=== PATIENT | female | born 1950 ===

== ENCOUNTER 2021-05-26 08:46 | Emergency (ER) | payer BC, OTHER ==
[~2021-05-26] VITALS: Ht 162.6 cm; Wt 90.4 kg
[2021-05-26] MEDS ORDERED: LEVO50TA5 PO (08:52)
[2021-05-26] MEDS ORDERED: ACETAMINOPHEN 500 MG TAB PO ONE (09:15)
--- OUTSIDE RECORDS SUMMARY | 2021-05-26 09:31 | CCD ---
Author Author [facility] Organization [facility] Address Unknown Phone Unavailable Care Team Providers Care Belt Press Operator Name Role Phone Theo, A Neha PA Unavailable Unavailable Theo, A Neha PA Unavailable Unavailable Theo, A Neha PA Unavailable Unavailable Theo, A Neha PA Unavailable Unavailable Theo, A Neha PA Unavailable Unavailable Theo, A Neha PA Unavailable Unavailable Theo, A Neha PA Unavailable Unavailable Theo, A Neha PA Unavailable Unavailable Theo, A Neha PA Unavailable Unavailable Theo, A Neha PA Unavailable Unavailable Theo, A Neha PA Unavailable Unavailable Theo, A Neha PA Unavailable Unavailable Theo, A Neha PA Unavailable Unavailable Theo, A Neha PA Unavailable Unavailable Theo, A Neha PA Unavailable Unavailable Theo, A Neha PA Unavailable Unavailable Theo, A Neha PA Unavailable Unavailable Theo, A Neha PA Unavailable Unavailable Theo, A Neha PA Unavailable Unavailable Theo, A Neha PA Unavailable Unavailable Theo, A Neha PA Unavailable Unavailable Theo, A Neha PA Unavailable Unavailable Theo, A Neha PA Unavailable Unavailable Theo, A Enha PA Unavailable Unavailable Theo, A Neha PA Unavailable Unavailable Theo, A Neha PA Unavailable Unavailable Theo, A Neha PA Unavailable Unavailable Theo, A Neha PA Unavailable Unavailable Theo, A Neha PA Unavailable Unavailable Theo, A Neha PA Unavailable Unavailable Theo, A Neha PA Unavailable Unavailable Theo, A Neha PA Unavailable Unavailable Theo, A Neha PA Unavailable Unavailable Theo, A Neha PA Unavailable Unavailable Theo, A Neha PA Unavailable Unavailable Theo, A Neha PA Unavailable Unavailable Theo, A Neha PA Unavailable Unavailable Theo, A Neha PA Unavailable Unavailable Theo, A Neha PA Unavailable Unavailable Theo, A Neha PA Unavailable Unavailable Theo, A Neha PA Unavailable Unavailable Theo, A Neha PA Unavailable Unavailable Theo, A Neha PA Unavailable Unavailable Theo, A Neha PA Unavailable Unavailable Theo, A Neha PA Unavailable Unavailable Theo, A Neha PA Unavailable Unavailable Theo, A Neha PA Unavailable Unavailable Theo, A Neha PA Unavailable Unavailable Theo, A Neha PA Unavailable Unavailable Theo, A Neha PA Unavailable Unavailable Theo, A Neha PA Unavailable Unavailable Theo, A Neha PA Unavailable Unavailable Theo, A Neha PA Unavailable Unavailable Re-disclosure Warning The records that you are about to access may contain information from federally-assisted alcohol or drug abuse programs. If such information is present, then the following federally mandated warning applies: This information has been disclosed to you from records protected by federal confidentiality rules (42 CFR part 2). The federal rules prohibit you from making any further disclosure of this information unless further disclosure is expressly permitted by the written consent of the person to whom it pertains or as otherwise permitted by 42 CFR part 2. A general authorization for the release of medical or other information is NOT sufficient for this purpose. The Federal rules restrict any use of the information to criminally investigate or prosecute any alcohol or drug abuse patient.The records that you are about to access may contain highly sensitive health information, the redisclosure of which is protected by Article 27-F of the [facility] Public Health law. If you continue you may have access to information: Regarding HIV / AIDS; Provided by facilities licensed or operated by the [facility] Office of Mental Health; or Provided by the [facility] Office for People With Developmental Disabilities. If such information is present, then the following [facility] mandated warning applies: This information has been disclosed to you from confidential records which are protected by state law. State law prohibits you from making any further disclosure of this information without the specific written consent of the person to whom it pertains, or as otherwise permitted by law. Any unauthorized further disclosure in violation of state law may result in a fine or half-way sentence or both. A general authorization for the release of medical or other information is NOT sufficient authorization for further disc losure. Allergies and Adverse Reactions Type Description Substance Reaction Status Data Source(s ) Drug allergy enalapril enalapril rash cough headache [facility] Drug allergy neomycin neomycin CONTACT DERMATITIS [facility] Food allergy No Known Food Allergies No Known Food Allergies [facility] Drug allergy amlodipine besylate amlodipine besylate rash SC [facility] Family History Family Member Name Family Member Gender Family Member Status Date o f Status Description Data Source(s) Unknown Condition [facility] Unknown Condition [facility] Unknown Condition [facility] Unknown Condition [facility] Unknown Condition [facility] Unknown Condition [facility] Unknown Condition [facility] Unknown Condition [facility] Unknown Condition [facility] Unknown Condition [facility] Unknown Condition [facility] Encounters Encounter Providers Location Date Indications Data Source(s ) Outpatient Attender: Neha VALDEZ 10/25/2020 03 :30:00 PM EDT ANNUAL SCREENING [facility] ANNUAL SCREENING Outpatient Attender: Neha Venegas PAReferrer: Neha VALDEZ 10/17/2020 09:15:00 AM EDT - 10/17/2020 10:03:00 AM EDT [facility] Outpatient Attender: Neha VALDEZ 10/12/2020 07 :12:00 AM EST Z12.11,E78.2,E03.9,R73.01,E55.9 [facility] Z12.11,E78.2,E03.9,R73.01,E55.9 Outpatient Attender: Neha VALDEZ 08/10/2020 08 :32:00 AM EST E03.9,E78.2,R73.01,E55.9 [facility] E03.9,E78.2,R73.01,E55.9 Outpatient Attender: Neha Venegas PAReferrer: Neha VALDEZ 04/16/2020 09:18:00 AM EDT - 04/16/2020 09:55:00 AM EDT [facility] Outpatient Attender: Neha VALDEZ 04/11/2020 08:05:00 AM EDT E03.9,E55.9 [facility] E03.9,E55.9 Medications Medication Brand Name Start Date Product Form Dose Route Admi nistrative Instructions Pharmacy Instructions Status Indications Reaction Description Data Source(s) Cholecalciferol 1999 UNT Oral Capsule Cholecalciferol (Vitamin D3) Cholecalciferol (Vitamin D3) 04/16/2020 09:59:15 AM EDT [address] [facility] Levothyroxine Sodium 0.1 MG Oral Tablet Levothyroxine 04/16/2020 09:57:52 AM EDT 100 MCG active [facility] Cholecalciferol 1999 UNT Oral Capsule Cholecalciferol (Vitamin D3) Cholecalciferol (Vitamin D3) 04/16/2020 09:38:24 AM EDT [address] [facility] Cholecalciferol 1999 UNT Oral Capsule Cholecalciferol (Vitamin D3) Cholecalciferol (Vitamin D3) 04/16/2020 09:38:24 AM EDT [address] [facility] Mupirocin 0.02 MG/MG Topical Ointment Mupirocin 12/29/2019 11:40 :17 AM EDT 1 APPLIC completed [facility] Mupirocin 0.02 MG/MG Topical Ointment Mupirocin 12/29/2019 11:40 :17 AM EDT 1 APPLIC completed [facility] Cefadroxil 500 MG Oral Capsule Cefadroxil 12/29/2019 11:37:53 AM EDT 500 MG completed [facility] Cefadroxil 500 MG Oral Capsule Cefadroxil 12/29/2019 11:37:53 AM EDT 500 MG completed [facility] Levothyroxine Sodium 0.088 MG Oral Tablet Levothyroxine 10/17/2019 09:29:09 AM EDT 88 MCG completed [facility] Cholecalciferol 86141 UNT Oral Capsule Cholecalciferol (Vitamin D3) Cholecalciferol (Vitamin D3) 10/17/2019 09:27:03 AM EDT [address] [facility] Cholecalciferol 60988 UNT Oral Capsule Cholecalciferol (Vitamin D3) Cholecalciferol (Vitamin D3) 10/17/2019 09:27:03 AM EDT [address] [facility] Insurance Providers Payer name Policy type / Coverage type Policy ID Covered green party ID Covered green party's relationship to lee Policy Lee Plan Information AETNA U [id number] Self [id number] AETNA U [id number] Self [id number] AETNA MEDICARE COMPLETE G [id number] Self [id number] AETNA MEDICARE COMPLETE G [id number] Self [id number] AETNA MCR - RECURRING [id number] AETNA -RECURRING [id number] BCBS [place] PPO [id number] Problems, Conditions, and Diagnoses No Information Surgeries/Procedures No Information Results ID Date Data Source [id number] 10/25/2020 06:21:00 PM EDT [facility] [address] [address] [phone] NAME SEX PT STATUS ACCOUNT NUMBER ELAINE BARTON PRE REF [id number] ORDERING PHYSICIAN LOCATION MEDICAL RECORD NO. Neha Venegas MAMMO [id number] ATTENDING PHYSICIAN DATE OF DATE OF EXAM/TIME Neha Venegas RPA 1950 10/25/20 / 6 TYPE / EXAM 3D DIG MAMMO SCREEN BILAT REASON FOR EXAM Screening for breast cancer LAST CLINICAL BREAST EXAM: Unknown FIVE YEAR RISK: 1.5% LIFETIME RISK: 4.5% FAMILY HISTORY OF BREAST CARCINOMA: None COMPARISON: 07/20/2017, 11/02/2006 2D bilateral digital mammogram in the CC and MLO projections was performed with supplemental 3D tomosynthesis of both breasts. FINDINGS: Craniocaudad and oblique lateral views of the breasts were obtained. The breasts are primarily of fat density. There is no dominant mass, suspicious clustered microcalcification or architectural distortion. IMPRESSION: No mammographic evidence of malignancy. Yearly screening recommended. OVERALL FINAL ASSESSMENT OF FINDINGS BI-RADS 1 - Negative OVERALL FINAL ASSESSMENT OF THE BREAST COMPOSITION Breast Density Classification: A Description: The breasts are almost entirely fatty. This mammogram was read with the assistance of M-Qinec, an FDA-approved computer-aided detection system for mammography. Reported By Darlene Romero MD on 10/25/201820 Signed By Darlene Romero MD on 10/25/201822 Date Time CC: Darlene Romero MD; Neha Venegas Techn: CUMME Trans Dt/Tm: Trans by: DT Prt Dt/Tm: : Total DLP = 0.00 mGy-cm 6630-6599: Total Radiation Dose = 0.0000 mSv Lifetime Dose: 0 mSv Name Value Range Interpretation Code Description Data Candie rce(s) Supporting Document(s) ID Date Data Source [id number] 10/17/2020 09:23:00 AM EDT [facility] Patient Name: ELAINE BARTON : 1950 Sex: F Pt Unit #: [id number] Location:[facility] Provider: Visit Date/Time: 10/17/20 Primary Insurance: [employer] MEDICARE Secondary Insurance: Self Pay ADDENDUM PHQ 9 2 <Electronically signed by Neha Prasad> 10/17/20 1026 Intake Vital Signs 10/17/20 09:27 10/17/20 10:11 Current Height 5 ft 4 in Current Weight 200 lb Weight Measurement Method Standing Scale BMI 34.3 BP 140/78 122/80 Blood Pressure Location Lt brachial Rt brachial Position Sitting Sitting Respiration 20 Pulse 80 Pulse Strength Normal Pulse Source Pulse Oximeter Temp 98.2 F Temp Source Oral Pulse Oximetry (%) 98 Oxygen Delivery Method room air Intake- Medicare Annual Visit Reasons: hypothyroidism f/u Nurse Note: F/u on labs Hot Die Picker Required: No Accompanied by: Self / Same as Patient Is patient in pain?: No Allergies enalapril [Enalapril] Allergy (Intermediate, Verified 10/17/20 09:44) rash cough headache neomycin [NEOMYCIN] Allergy (Intermediate, Verified 10/17/20 09:44) CONTACT DERMATITIS amlodipine besylate [From Norvas] Allergy (Mild, Verified 10/17/20 09:44) rash No Known Food Allergies Allergy (Verified 10/17/20 09:44) Medications - Last Reconciled 10/17/20 by JOURDAN Su cholecalciferol (vitamin D3) 4,000 units PO QDAY levothyroxine 100 mcg PO QDAY Requirement for HIV testing offer been met?: Not in age range Coronavirus Screening Screening A re you currently positive or on isolation for COVID ?: No Do you have any NEW signs of one or more of the following?: no symptoms Do you have NEW signs of at least two of the following?: no symptoms PFSH Medical History (Updated 10/17/20 @ 10:17 by JOURDAN Su) Acquired hypothyroidism Arthritis of knee, left Contracture of joint of finger of left hand History of tetanus, diphtheria, and acellular pertussis booster vaccination (Tdap) Hypertension Hypoglycemia Pre-diabetes Pure hypercholesterolemia Trigger finger, left ring finger Vitamin D insufficiency Surgical History (Updated 10/17/20 @ 10:14 by JOURDAN Su) History of ear surgery History of hand surgery Status post tonsillectomy Family History Mother Diabetes Father Diabetes Sister Hypothyroidism Leukemia Brother Hypothyroidism Leukemia Other Asthma Social History (Updated 10/17/20 @ 10:15 by JOURDAN Su) Does the Patient have a Healthcare Proxy: Yes Does Patient have a DNR?: Yes Does Patient have a Living Will?: Yes household members: spouse and family housing: house marital status: number of children: 5 number of grandchildren: 10 highest education level completed: high school graduate current occupational status: retired pets and animals: No well-balanced diet: daily caffeine: No high-fat food intake: 0-1 times daily daily servings fruits/ve-4 daily servings of milk/calcium: 2-4 reads food labels: sometimes what type of physical activity do you participate in?: walking physical activity counseling: advised >150 min/week exercise (moderate intensity) frequency: 1-2 times per week duration: 15-30 minutes/day Smoking Status: Never smoker alcohol intake: never substance use type: does not use sachin/church: [employer] agree to transfusion: Yes seatbelt use: always drive intox or ride w/ intox tank truck driver: No water heater temp set < 120 deg: Yes working smoke detector in home: Yes fire extinguisher in home: Yes carbon monox detector in home: Yes firearms in home: Yes firearms unloaded and locked: Yes do you feel safe at home: Yes victim of physical abuse: No victim of emotional abuse: No victim of sexual abuse: No would you like helpful sources: No Female Reproductive History Menstrual Age of Menarche: 14 Menopause type: natural (54) Total pregnancies: 5 Medicare Annual Wellness Medication list Medications cholecalciferol (vitamin D3) 4,000 units PO QDAY levothyroxine 100 mcg PO QDAY Allergies Allergies enalapril [Enalapril] Allergy (Intermediate, Verified 10/17/20 09:44) rash cough headache neomycin [NEOMYCIN] Allergy (Intermediate, Verified 10/17/20 09:44) CONTACT DERMATITIS amlodipine besylate [From Norvasc] Allergy (Mild, Verified 10/17/20 09:44) rash No Known Food Allergies Allergy (Verified 10/17/20 09:44) Current Diet Current diet: regular Vision Luo VA Far - right eye: 20/20 VA Far - left eye: 20/25 VA Far - bilateral eyes: 20/20 Functional Assessment Bathing: Independent Dressing: Independent Toileting: Independent Transferring: Independent Continence: Independent Feeding: Independent Total Score: 6 Home Safety Home Safety: Reports Lighting: Adequate, [place]: No throw rugs and Stairs: Handrail available Cognitive Evaluation Oriented to the date:: Yes Oriented to time:: Yes Oriented to place:: Yes Mood: grossly normal Affect: Normal Judgement: normal Needs caregiver for assistance: No Clock drawing: Yes Clock drawing with correct time: Yes 3 item recall: 2 HPI Additional HPI HPI Details: 70yo female with PMH hypothyroidism, hyperlipidemia, impaired fasting glucose here for f/u. 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 Says medicare wellness but Elaine had done at her last appt in april. Has not had mammo since 2016. Does not do regular SBE - no breast pain or nipple d/c. Does not remember last pap smear, would have been with Dr. Quezada. Does not want a colonoscopy or DEXA. Previously given IFOB but has not done yet. Audiology evaluation ordered in apr but Elaine states she was not called for an appt Working on losing weight - daughter works at [employer] so she is doing a weight loss challenge so that ishroxanna Henry get back on track Impaired glucose - recent hga1c 5.8% - has been trying to limit carbs/sweets. Cut out diet soda 1wk ago Hyperlipidemia - HDL 59, LDL `57, TG 142, framingham risk score 11.1% - Elaine does not want to takestatin Hypothyroidism - currently on levothyroxine 100mcg daily. TSH 0.80, FT4 1.23 Vit D 30 - admits she is not good about taking vit d daily Review of Systems Const Denies chills, Denies difficulty sleeping, Denies excessive sweating, Denies fatigue, Denies fever(s), Denies headache(s) and Denies poor appetite ENT Denies headache(s) Card Denies chest pain and Denies palpitations GI Denies change in bowel habits, Denies constipation, Denies heartburn, Denies diarrhea, Denies loose stools, Denies nausea and Denies vomiting Genitourinary: Denies nocturia Skin/Breast Denies change in hair, Denies dry skin and Denies alopecia Neuro Denies headache(s) Psych Denies anxiety and Denies depression Details: WAKES UP TO URINATE AND THEN HAS A HARD TIME GOING BACK TO SLEEP Endo Denies cold intolerance, Denies excessive sweating, Denies fatigue, Denies heat intolerance and Denies palpitations Exam Const General: cooperative, healthy appearing, comfortable, no acute distress, well developed and well groomed Nutritional Appearance: obese [facility] Head: normal to inspection, normocephalic and atraumatic General nose exam: no nasal discharge Mouth: moist mucous membranes Eyes Conjunctivae: normal conjunctivae Sclera: normal sclerae EOM: EOM intact bilaterally Neck Neck: normal visual inspection, no lymphadenopathy, trachea midline and supple Thyroid: thyroid normal Carotids: no bruits Lymphatic: no lymphadenopathy noted Chest Chest: deferred (REFUSED) Resp Effort Inspection: normal respiratory effort Auscultation: clear to auscultation bilaterally, no crackles, lung sounds not diminished and no wheezes Cardio Rate: regular rate Rhythm: regular rhythm Heart Sounds: S1 normal and S2 normal Bruits: no carotid bruits Pulses: posterior tibial pulses present bilaterally 3+ GI Palpation: soft, no hepatosplenomegaly, no guarding, no masses and nontender Auscultation: normal bowel sounds General: deferred (REFUSED) Skin Lesions: no lesions Rashes: no rashes Neuro General: gait normal and moves all extremities Cranial Nerves: CN's II-XII intact bilaterally Cognition: normal cognition Speech: speech normal Motor: muscle tone normal throughout Extrem General: no edema Psych Appearance: grossly normal and well kempt Mental Status: mental status grossly normal Speech and Movement: speech and movement normal Affect: normal affect Attitude: cooperative Thought Process: normal Thought Content: normal Insight: insight good Judgment: judgment good Assessment Plan Assessment Plan (1) Acquired hypothyroidism: Status: Chronic Code(s): E03.9 - Hypothyroidism, unspecified SNOMED Code(s): 646509656 Category: Medical Plan - KARLENE SuC: Discussed lab results. Stable on levothyroxine 100mcg daily. Orders: Orders: TSH 1 Year FREE T4 (LAB) 1 Year Medications: Refilled: levothyroxine 100 mcg PO QDAY 90 tabs 3RF (2) Pure hypercholesterolemia: Status: Chronic Code(s): E78.00 - Pure hypercholesterolemia, unspecified SNOMED Code(s): 729968922 Category: Medical Plan - Neha Venegas RPA-C: Discussed lab results, LDL <100. Refused statin. Encouraged decreased saturated fats, increase veg/protein intake, regular physical activity. Elaine is actively working on losing weight. Recheck cmp and lipids 1yr. Orders: Orders: CMP 1 Year LIPID PANEL 1 Year (3) Pre- diabetes: Status: Chronic Code(s): R73.03 - Prediabetes SNOMED Code(s): 966721347 Category: Medical Plan - KARLENE SuC: Recent hga1c 5.8% Encouraged to cut down on breads/pastas/potatoes/rice/sweets, increase protein/veg intake. Encouraged regular physical exercise. Orders: Orders: HGBA1C + EAG 1 Year (4) Vitamin D insufficiency: Status: Chronic Code(s): E55.9 - Vitamin D deficiency, unspecified SNOMED Code(s): 42493288 Category: Medical Plan - JOURDAN Su: Recent level 30. Admits she has not been good about taking 4000iu daily. Recommended 6000iu daily x 1mo then resume 4000iu daily. Summertime recommended 2000iu daily. Orders: Orders: Vitamin D 25-OH 1 Year Additional Comments Additional Comments: Mammo ordered. Refused colonoscopy, DEXA, Tdap, shingles, pneumonia, flu vaccine. Defers f/u before 1yr. Advised to contact office if questions/concerns arise or s/s develop. Orders Other Orders: Orders: 3D DIG MAMMO SCREEN BILAT 1 Year Z12.31 Coding Level of Care Code 60532 Est Pt Extended Comp Exam Detailed Diagnoses Acquired hypothyroidism E03.9 Pure hypercholesterolemia E78.00 Pre-diabetes R73.03 Vitamin D insufficiency E55.9 <Electronically signed by Neha Venegas RPA C> 10/17/20 [facility] Name Value Range Interpretation Code Description Data Candie rce(s) Supporting Document(s) ID Date Data Source [id number] 10/12/2020 07:59:00 AM [facility] Name Value Range Interpretation Code Description Data Candie rce(s) Supporting Document(s) Hemoglobin A1c [Mass/volume] in Blood 5.8 % 3.8-5.6 Above hig h normal [facility] The following ranges may be u sed for interpretation of results: HGBA1C degree of glucose control: Greater than 8%: Action Suggested * Less than 7%: Goal of Diabetic Therapy Less than 5.6%: NormalFactors such as duration of diabetes, adherence to therapyand the age of the patient should also be considered inassessing the degree of blood glucose control.* High risk of developing exterminator helper termite complications such asretinopathy, nephropathy, neuropathy, cardiopathy, etc. Some danger of hypoglycemic reaction in Type I diabetics.Some glucose intolerant individuals and "Sub Clinical"diabetics may demonstrate HGBA1C levels in this area. Glucose mean value [Moles/volume] in Blood Estimated f rom glycated hemoglobin 120 mg/dL [facility] An A1C of 7% - the goal of diabetic ther apy - is equivalentto an EAG of 154 mg/dl. ID Date Data Source [id number] 10/12/2020 08:33:00 AM EST [facility] Name Value Range Interpretation Code Description Data Candie rce(s) Supporting Document(s) Urea nitrogen [Mass/volume] in Serum or Plasma 17 mg/dL 9-23 N [facility] Sodium [Moles/volume] in Serum or Plasma 142 mmol/L 132-146 N [facility] Potassium [Moles/volume] in Serum or Plasma 4.4 mmol/L 3.5-5.5 N [facility] Chloride [Moles/volume] in Serum or Plasma 110 mmol/L 99-109 Above high normal [facility] Carbon dioxide, total [Moles/volume] in Serum or Plasma 27 mmol/L 20 -31 N [facility] Anion gap in Serum or Plasma 9 mmol/L 8-16 N [facility] Glucose [Mass/volume] in Serum or Plasma 96 mg/dL 74-106 N [facility] Creatinine 0.8 mg/dL 0.5-1.1 N [facility] Glomerular filtration rate/1.73 sq M.pre dicted [Volume Rate/Area] in Serum or Plasma Greater Than 60 ABOVE 60 [facility] Alanine aminotransferase [Enzymatic acti vity/volume] in Serum or Plasma by With P-5'-P 21 U/L 10-49 N [facility] ital Aspartate aminotransferase [Enzymatic ac tivity/volume] in Serum or Plasma by With P-5'-P 23 U/L 0-33 N [facility] pital Alkaline phosphatase [Enzymatic activity/volume] in Serum or Plasma 116 U/L 45-129 N [facility] Calcium [Mass/volume] in Serum or Plasma 9.0 mg/dL 8.5-10.1 N [facility] Bilirubin.total [Mass/volume] in Serum or Plasma 0.4 mg/dL 0.3-1.2 [facility] Albumin [Mass/volume] in Serum or Plasma by Bromocresol purple (BCP) dye binding method 3.5 g/dL 3.2-4.8 N [facility] ital Protein [Mass/volume] in Serum or Plasma 7.7 g/dL 5.7-8.2 N [facility] ID Date Data Source [id number] 10/13/2020 07:42:00 AM [facility] Name Value Range Interpretation Code Description Data Candie rce(s) Supporting Document(s) 25-Hydroxyvitamin D2+25-Hydroxyvitamin D3 [Mass/volume ] in Serum or Plasma 30 ng/mL 30-100 [facility] l Vitamin D Status 25-OH Vitamin D :Deficiency: <20 ng/mLInsufficiency: 20 - 29 ng/mLOptimal: > or = 30 ng/mLFor 25-OH Vitamin D testing on patients onD2-supplementation and patients for whom quantitationof D2 and D3 fractions is required, the QuestAssureD(TM)25- [place] VIT D, (D2,D3), LC/MS/MS is recommended: ordercode 88491 (patients >2yrs).See Note 1Note 1For additional information, please refer tohttp://education.[employer]/faq/TWW274(This link is being provided for informational/educational purposes only.)THIS TEST WAS PERFORMED AT:[address] [id number] GARCIA MD ID Date Data Source [id number] 10/12/2020 08:33:00 AM [facility] Name Value Range Interpretation Code Description Data Candie rce(s) Supporting Document(s) Triglycerides 142 mg/dL 0-150 [facility] Cholesterol 244 mg/dL 120-200 Above high normal [facility] HDL Cholesterol 59 mg/dL [facility] HDL Less than 40 mg/dL: Major risk for CHDHDL Greater than 59 mg/dL: Low risk for CHD LDL Cholesterol, Calc 157 mg/dL 0-100 Above high normal [facility] ID Date Data Source [id number] 10/12/2020 08:33:00 AM [facility] Name Value Range Interpretation Code Description Data Candie rce(s) Supporting Document(s) Thyroxine (T4) free [Mass/volume] in Serum or Plasma 1.23 ng/dL 0.89- 1.76 [facility] ID Date Data Source [id number] 10/12/2020 08:33:00 AM [facility] Name Value Range Interpretation Code Description Data Candie rce(s) Supporting Document(s) Thyrotropin [Units/volume] in Serum or Plasma by Detec tion limit <= 0.005 mIU/L 0.80 u[iU]/mL 0.35-5.50 [facility] ID Date Data Source [id number] 08/10/2020 10:15:00 AM [facility] Name Value Range Interpretation Code Description Data Candie rce(s) Supporting Document(s) Thyroxine (T4) free [Mass/volume] in Serum or Plasma 1.24 ng/dL 0.89- 1.76 [facility] ID Date Data Source [id number] 08/10/2020 10:15:00 AM [facility] Name Value Range Interpretation Code Description Data Candie rce(s) Supporting Document(s) Thyrotropin [Units/volume] in Serum or Plasma by Detec tion limit <= 0.005 mIU/L 2.10 u[iU]/mL 0.35-5.50 [facility] ID Date Data Source [id number] 04/16/2020 09:26:00 AM [facility] Patient Name: ELAINE BARTON DO B: 1950 Sex: F Pt Unit #: [id number] Location:[facility] Provider: Visit Date/Time: 04/16/20 Primary Insurance: [employer] Medicare PPO Secondary Insurance: Self Pay Intake Vital Signs 04/16/20 09:26 Current Height 5 ft 4 in Current Weight 196 lb Weight Measurement Method Standing Scale BMI 33.6 BP 120/82 Blood Pressure Location Lt brachial Position Sitting Respiration 18 Pulse 76 Pulse Strength Normal Pulse Source Pulse Oximeter Temp 98.1 F Temp Source Oral Pulse Oximetry (%) 98 Oxygen Delivery Method room air Intake Visit Reasons: Hypothyroidism Nurse Note: Pt is here for a follow up on her Hypothyroidism Hot Die Picker Required: No Accompanied by: Self / Same as Patient Is patient in pain?: No Allergies enalapril [Enalapril] Allergy (Intermediate, Verified 04/16/20 10:02) rash cough headache neomycin [NEOMYCIN] Allergy (Intermediate, Verified 04/16/20 10:02) CONTACT DERMATITIS amlodipine besylate [From [facility]] Allergy (Mild, Verified 04/16/20 10:02) rash Medications cholecalciferol (vitamin D3) 4,000 units PO QDAY levothyroxine 100 mcg PO QDAY PHQ-2/9 Over the last 2 weeks, how often have you been bothered by any of the following problems? 1. Little interest or pleasure in doing things: not at all 2. Feeling down, depressed, or hopeless: not at all Total score: 0 HIV Testing Offer - ages 13-64 Requirement for HIV testing offer been met?: Not in age range SBIRT Annual Questionnaire Are you currently in recovery for alcohol or substance use?: No How many times in the past year have you had 4 or more drinks in a day?: None How many times in the past year have you used a recreational drug or used a prescription medication for nonmedical reasons?: None Do you need a note to return Do you need a note to return to daycare/school/sports/work: No Coronavirus Screening Screening Have you t raveled outside of [facility] or [facility] in the last 14 days.: No Has patient experienced coronavirus symptoms: No [facility] Medical History (Updated 10/17/19 @ 09:44 by JOURDAN Su) Acquired hypothyroidism History of tetanus, diphtheria, and acellular pertussis booster vaccination (Tdap) Hypertension Hypoglycemia Impaired fasting glucose Pure hypercholesterolemia Vitamin D insufficiency Surgical History (Updated 04/16/20 @ 10:01 by JOURDAN Su) History of - surgery History of hand surgery Status post tonsillectomy Family History Mother Diabetes Father Diabetes Sister Hypothyroidism Leukemia Brother Hypothyroidism Leukemia Other Asthma Social History Does the Patient have a Healthcare Proxy: Yes Does Patient have a DNR?: Yes Does Patient have a Living Will?: Yes household members: spouse and family housing: house marital status: number of children: 5 highest education level completed: high school graduate current occupational status: retired pets and animals: No well-balanced diet: daily high-fat food intake: 0-1 times daily daily servings fruits/ve-4 daily servings of milk/calcium: 2-4 reads food labels: sometimes frequency: 1-2 times per week duration: 15-30 minutes/day alcohol intake: never substance use type: does not use sachin/church: [employer] agree to transfusion: Yes seatbelt use: always drive intox or ride w/ intox tank truck driver: No water heater temp set < 120 deg: Yes working smoke detector in home: Yes fire extinguisher in home: Yes carbon monox detector in home: Yes firearms in home: Yes firearms unloaded and locked: Yes do you feel safe at home: Yes victim of physical abuse: No victim of emotional abuse: No victim of sexual abuse: No would you like helpful sources: No Female Reproductive History Menstrual Age of Menarche: 14 Menopause type: natural (54) HPI Hypothyroidism 70yo female with PMH hypothyroidism, vitamin D insufficiency and hyperlipidemia here for f/u and to discuss lab results. Elaine states she is doing well. No new concerns. Had LT ring finger PIP joint volar capsular release in 01/2020 - no complications. Hypothyroidism - currently on levothyroxine 88mcg daily. Recent TSH 5.58, FT4 1.15. Vitamin d insufficiency - has been taking 2000iu daily. recent level 36 Current symptoms: Reports weight loss (7lbs since last o.v., cutting back and doing more exercise); Denies lethargy, fatigue, excessive weight gain, increased appetite, poor appetite, cold intolerance, heat intolerance, alopecia, dry skin, dysphagia or difficulty breathing Current treatment: Levothyroxine Review of Systems Const Denies chills, Denies excessive sweating, Denies fatigue, Denies fever(s), Denies increased appetite, Denies lethargy, Denies poor appetite and Reports weight loss (7lbs since last o.v., cutting back and doing more exercise) ENT Denies dysphagia Card Denies chest pain, Denies syncope, Denies palpitations, Denies dyspnea and Denies dyspnea on exertion Resp Denies cough, Denies dyspnea, Denies dyspnea on exertion and Denies wheezing GI Denies change in stool character, Denies constipation, Denies dysphagia, Denies heartburn, Denies diarrhea, Denies nausea and Denies vomiting Skin/Breast Denies change in hair, Denies dry skin and Denies alopecia Neuro Denies syncope Psych Denies abnormal sleep pattern and Denies depression Endo Denies cold intolerance, Denies excessive sweating, Denies fatigue, Denies heat intolerance, Denies polyphagia, Denies polydipsia, Denies polyuria and Denies palpitations Aller/Immun Denies wheezing Exam Const General: cooperative, healthy appearing, comfortable, no acute distress, well developed and well groomed Nutritional Appearance: obese [facility] Head: normal to inspection, normocephalic and atraumatic General nose exam: no nasal discharge Mouth: moist mucous membranes Eyes Conjunctivae: normal conjunctivae Sclera: normal sclerae EOM: EOM intact bilaterally Neck Neck: normal visual inspection, no lymphadenopathy, trachea midline and supple Thyroid: thyroid normal Carotids: no bruits Lymphatic: no lymphadenopathy noted Resp Effort Inspection: normal respiratory effort Auscultation: clear to auscultation bilaterally, no crackles, lung sounds not diminished and no wheezes Cardio Rate: regular rate Rhythm: regular rhythm Heart Sounds: S1 normal and S2 normal Bruits: no carotid bruits Pulses: posterior tibial pulses present GI Palpation: soft, no hepatosplenomegaly, no guarding, no masses and nontender Auscultation: normal bowel sounds Skin Lesions: no lesions Rashes: no rashes Neuro General: gait normal and moves all extremities Cranial Nerves: CN's II-XII intact bilaterally Cognition: normal cognition Speech: speech normal Motor: muscle tone normal throughout Extrem General: no edema Psych Appearance: grossly normal and well kempt Mental Status: mental status grossly normal Speech and Movement: speech and movement normal Affect: normal affect Attitude: cooperative Thought Process: normal Thought Content: normal Insight: insight good Judgment: judgment good Assessment Plan Assessment Plan (1) Hearing loss in left ear: Code(s): H91.92 - Unspecified hearing loss, left ear Plan - JOURDAN Su: Audiology evaluation ordered. Orders: Referrals: Audiology Referral (2) Acquired hypothyroidism: Status: Chronic Code(s): E03.9 - Hypothyroidism, unspecified SNOMED Code(s): 771011436 Category: Medical Plan - JOURDAN Su: Discussed lab results. Increase levothyroxine 100mcg daily. Recheck TSH, FT4 3months. Will call with results. Orders: Orders: FREE T4 (LAB) 3 Months TSH 3 Months FREE T4 (LAB) 6 Months TSH 6 Months Medications: New: levothyroxine 100 mcg PO QDAY 90 tabs 1RF Discontinued: levothyroxine Discontinued Reason: MD Order 88 mcg PO QDAY 90 tabs 1RF (3) Vitamin D insufficiency: Status: Chronic Code(s): E55.9 - Vitamin D deficiency, unspecified SNOMED Code(s): 13589344 Category: Medical Plan - JOURDAN Su: Discussed lab results. Increase OTC vit D 4000iu daily. Orders: Orders: Vitamin D 25-OH 6 Months Medications: Discontinued: cholecalciferol (vitamin D3) 2X/WK X 1MO THEN 1X/WK X 2MONTHS - TAKE W/FOOD Discontinued Reason: MD Order 50,000 units PO DIRECTED 8 caps 2RF Additional Comments Additional Comments: Refused mammo. Encouraged to do IFOB - has kit at home. F/u 6months with labs prior to appt. Advised to contact office if questions/concerns arise or s/s develop. Orders Other Medications: Discontinued: cholecalciferol (vitamin D3) Discontinued Reason: None 2,000 units PO QDAY Other Orders: Orders: CMP 6 Months E78.2 LIPID PANEL 6 Months E78.2 HGBA1C + EAG 6 Months R73.01 Instructions: Hypothyroidism (GEN) Medicare Annual Wellness Type Of Examation Type of Exam: Subsequent Wellness Exam EKG EKG Performed: No Medication list Medications cholecalciferol (vitamin D3) 4,000 units PO QDAY levothyroxine 100 mcg PO QDAY Allergies Allergies enalapril [Enalapril] Allergy (Intermediate, Verified 04/16/20 10:02) rash cough headache neomycin [NEOMYCIN] Allergy (Intermediate, Verified 04/16/20 10:02) CONTACT DERMATITIS amlodipine besylate [From Norvasc] Allergy (Mild, Verified 04/16/20 10:02) rash Current Diet Current diet: regular PHQ-2/9 Over the last 2 weeks, how often have you been bothered by any of the following problems? 1. Little interest or pleasure in doing things: not at all 2. Feeling down, depressed, or hopeless: not at all Total score: 0 Functional Assessment Bathing: Independent Dressing: Independent Toileting: Independent Transferring: Independent Continence: Independent Feeding: Independent Total Score: 6 Home Safety Home Safety: Reports Lighting: Adequate, [place]: No throw rugs and Stairs: Handrail available; DeniesBathroom: Grab bars Hearing Hearing Left Ear: Abnormal Hearing Right Ear: Normal Hearing test method: whispered voice IADL Assessment Functional abilities: Up Go test, pt steady, Up Go test, within 30 sec, Pt independent w/phone,Pt independent w/transportation, Pt independent w/shopping, Pt independent w/housework, Pt independent w/meal preparation, Pt independent w/laundry, Pt independent w/medication and Pt independent w/finances Cognitive Evaluation Oriented to the date:: Yes Oriented to time:: Yes Oriented to place:: Yes Mood: grossly normal Affect: Normal Judgement: normal Needs caregiver for assistance: No Clock drawing: Yes Clock drawing with correct time: Yes 3 item recall: 3 Electronically Signed By: <Electronically signed by Neha Prasad> Date/Time Signed: 04/16/20 1005 Name Value Range Interpretation Code Description Data Candie rce(s) Supporting Document(s) ID Date Data Source [id number] 04/11/2020 09:20:00 AM EDT [facility] Name Value Range Interpretation Code Description Data Candie rce(s) Supporting Document(s) Urea nitrogen [Mass/volume] in Serum or Plasma 17 mg/dL 9-23 N [facility] Sodium [Moles/volume] in Serum or Plasma 140 mmol/L 132-146 [facility] Potassium [Moles/volume] in Serum or Plasma 4.2 mmol/L 3.5-5.5 [facility] Chloride [Moles/volume] in Serum or Plasma 109 mmol/L 99-109 [facility] Carbon dioxide, total [Moles/volume] in Serum or Plasma 26 mmol/L 20 -31 N [facility] Anion gap in Serum or Plasma 9 mmol/L 8-16 N [facility] Glucose [Mass/volume] in Serum or Plasma 99 mg/dL 74-106 [facility] Creatinine 0.8 mg/dL 0.5-1.1 [facility] Glomerular filtration rate/1.73 sq M.pre dicted [Volume Rate/Area] in Serum or Plasma Greater Than 60 ABOVE 60 [facility] Alanine aminotransferase [Enzymatic acti vity/volume] in Serum or Plasma by With P-5'-P 18 U/L 10-49 N [facility] ital Aspartate aminotransferase [Enzymatic ac tivity/volume] in Serum or Plasma by With P-5'-P 17 U/L 0-33 [facility] pital Alkaline phosphatase [Enzymatic activity/volume] in Serum or Plasma 93 U/L 45-129 [facility] Calcium [Mass/volume] in Serum or Plasma 9.0 mg/dL 8.5-10.1 N [facility] Bilirubin.total [Mass/volume] in Serum or Plasma 0.4 mg/dL 0.3-1.2 N [facility] Albumin [Mass/volume] in Serum or Plasma by Bromocresol purple (BCP) dye binding method 3.3 g/dL 3.2-4.8 [facility] ital Protein [Mass/volume] in Serum or Plasma 7.6 g/dL 5.7-8.2 [facility] ID Date Data Source [id number] 04/12/2020 09:42:00 AM [facility] Name Value Range Interpretation Code Description Data Candie rce(s) Supporting Document(s) 25-Hydroxyvitamin D2+25-Hydroxyvitamin D3 [Mass/volume ] in Serum or Plasma 36 ng/mL 30-100 [facility] l Vitamin D Status 25-OH Vitamin D :Deficiency: <20 ng/mLInsufficiency: 20 - 29 ng/mLOptimal: > or = 30 ng/mLFor 25-OH Vitamin D testing on patients onD2-supplementation and patients for whom quantitationof D2 and D3 fractions is required, the [facility]()25- [place] VIT D, (D2,D3), LC/MS/MS is recommended: ordercode 09723 (patients >2yrs).See Note 1Note 1For additional information, please refer tohttp://education.[employer]/faq/LFL786(This link is being provided for informational/educational purposes only.)THIS TEST WAS PERFORMED AT:[address] [address]WINTER GARCIA MD ID Date Data Source [id number] 04/11/2020 09:20:00 AM [facility] Name Value Range Interpretation Code Description Data Candie rce(s) Supporting Document(s) Thyroxine (T4) free [Mass/volume] in Serum or Plasma 1.15 ng/dL 0.89- 1.76 N [facility] ID Date Data Source [id number] 04/11/2020 09:20:00 AM EDT [facility] Name Value Range Interpretation Code Description Data Candie rce(s) Supporting Document(s) Thyrotropin [Units/volume] in Serum or Plasma by Detec tion limit <= 0.005 mIU/L 5.58 u[iU]/mL 0.35-5.50 Above high normal [facility] Procedure Social History No Information
[2021-05-26 11:09] VITALS: BP 134/64
== END 2021-05-26 11:27 | disposition home or self-care (01) ==
LOC: M ED 08:46
DX: U07.1 COVID-19 (principal); E07.9 Disorder of thyroid, unspecified

== ENCOUNTER 2021-05-27 09:03 | Outpatient (CLI) | payer BC, OTHER ==
--- NOTE | 2021-05-26 12:19 | HPEPDOC ---
[facility] Medical History & Physical Date of Admission May 26, 2021 Date of Service: May 26, 2021 History and Physical Chief complaint: Who presented to the emergency room with fatigue and a nonproductive cough History of present illness: Patient is a 71-year-old female with a past medical history of hypothyroidism who presented to the emergency room after reporting symptoms of weakness and a nonproductive cough since evening. Patients has tested positive for COVID19 and is currently being treated in the intensive care unit. Patient came to the ER for further evaluation and was subsequently found to be positive. Currently patient denies any shortness of breath. Does report a nonproductive cough. Denies any chest pain. Does report weakness. Has not experienced any nausea, vomiting, abdominal pain, constipation, diarrhea, or urinary discomfort. At home she reports chills without any fevers. She reports a poor appetite but is not certain of any changes in her weight. 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 Review of Systems: 10 point review of systems complete, all negative otherwise stated in HPI Physical exam: - Vitals: BP [134/64], HR [90], RR [18], Sat [95%RA], Temp [98.3F] - General: Lying in bed, Speaking in full sentences, AAOx3 - HEENT: NC, AT, PERRLA - CVS: RRR, +S1S2 - Lungs: Fair air entry bilaterally, No appreciable wheezing / rales / rhonchi - Abdomen: Soft, Non-distended, Non-tender - Extremities: No lower extremity edema, No calf tenderness - Neuro: No focal motor or sensory deficit - Skin: No visible rashes Labs: See below Imaging: See below EKG: See below Assessment and Plan: COVID19 - Patient presented to ER with cough / weakness since evening - Patient has tested positive in the ER 05/26/2021 - Patient is currently not hypoxic and saturating 96% on room air - Patient is a candidate to receive monoclonal antibodies - Discussed risks and benefits with patient; she has verbalized understanding and she has signed consent for infusion of monoclonal antibodies Hypothyroidism - c/w Levothyroxine DVT prophylaxis - Will continue with early ambulation Home Medications Scheduled Levothyroxine Sodium (Levothyroxine Sodium) 50 Mcg Tablet, 100 MCG PO DAILY Allergies Coded Allergies: No Known Allergies (Unverified , 05/26/21) JET FLORIAN MD May 26, 2021 12:19
[~2021-05-27] VITALS: Ht 162.6 cm; Wt 90.4 kg
[~2021-05-27 09:03] MED LIST: ACETAMINOPHEN TAB 650MG DOSE (2X325MG) PO PRN; ALBUTEROL 90 MCG/ACT 8GM HFA INHALER INH PRN; ALBUTEROL SULFATE 2.5 MG/0.5 ML INH NEB SOLN INH PRN; EPINEPHrine INJ 1 MG/ML 1ML AMP IM PRN; LEVO50TA5 PO; NS 1,000 ML IV SCH; diphenhydrAMINE 50MG/ML VIAL (J1200) IV PRN; methylPREDNISolone 125MG 2ML VIAL IV PRN
[2021-05-27 10:15] VITALS: BP 95/64
[2021-05-27 10:45] VITALS: BP 118/60
[2021-05-27] MEDS ORDERED: BAMLANIVIMAB 700 MG, ETESEVIMAB 1,400 MG in NS 250 ML IV ONE (11:00)
[2021-05-27 11:15] VITALS: BP 128/63
[2021-05-27 12:15] VITALS: BP 137/63
== END 2021-05-27 12:15 | disposition home or self-care (01) ==
LOC: M OPCLI4 09:03
PROVIDERS: ATTEND Internal Medicine
DX: U07.1 COVID-19 (principal)